=== PATIENT | male | born 1955 | race Two or more races ===

== ENCOUNTER 2016-11-08 11:13 | Inpatient (IN) | payer MEDICAID ==
[~2016-11-08] VITALS: Ht 182.9 cm; Wt 104.3 kg
--- NOTE | 2016-11-08 11:52 | NUR ---
PT IS A 61 YEAR OLD MALE, PRESENTS TO ED VIA [facility] FROM URGENT CARE WITH C/O SHORTNESS OF BREATH AND INTERMITTENT CHEST PAIN. PT REPORTS HAS BEEN HAVING INTERMITTENT MID CHEST PAIN WITH PRESSURE LIKE QUALITY AND NON RADIATING, AND SHORTNESS OF BREATH (UNABLE TO TAKE FULL DEEP BREATH). PT REPORTS WENT TO URGENT CARE FOR SAME ISSUE, AND WAS SENT HOME WITH PREDNISONE, AND ANTIBIOTICS. PT WENT BACK TO URGENT CARE TODAY AND URGENT CARE INFORMED HIM TO GO TO ER. PT DENIES ANY CHEST PAIN AT THIS TIME. PT BREATHING IS EVEN AND UNLABORED, NO S./S OF RESPRAITORY DISTRESS. SPEECH IS CLEAR AND APPROPRIATE. PT A/O X4. PT HOOKED TO FULL CREDIT CONTROL CLERK. LUNG SOUNDS ARE CLEAR BILATERALLY. SKIN IS WARM, DRY AND INTACT. MSE PERFORMED BY DR. SUNSHINE.
[2016-11-08 11:53] LABS: BASOPHIL % 0.3 % (0-2); PLATELET COUNT 198 x10^3mcL (130-400)
[2016-11-08 11:56] LABS: RED CELL DISTRIBUTION WIDTH 15.5 % (11.5-14.5)
[2016-11-08 12:08] LABS: CALCIUM 8.4 mg/dL (8.5-10.1); CARBON DIOXIDE 27.2 mmol/L (21-32); CHLORIDE SERUM 106 mmol/L (98-107); CREATININE SERUM 1.2 mg/dL (0.7-1.3); GFR1 > 60 mL/min; GLUCOSE SERUM 113 mg/dL (74-106); POTASSIUM SERUM 4.8 mmol/L (3.5-5.1); SODIUM SERUM 141 mmol/L (136-145)
[2016-11-08 12:13] LABS: ALBUMIN 3.5 g/dL (3.4-5.0); ALKALINE PHOSPHATASE 68 U/L (46-116); ALT/SGPT 93 U/L (16-63); AST/SGOT 38 U/L (15-37); BILIRUBIN TOTAL 1.39 mg/dL (0.20-1.00); TOTAL PROTEIN, SERUM 6.4 g/dL (6.4-8.2)
--- NOTE | 2016-11-08 13:08 | NUR ---
CARDIZEM DRIP RAISED 5MG/HR, DRIP NOW AT 10MG/HR. PT HR AT 103.
[2016-11-08] MEDS ORDERED: LISINOPRIL10 MG PO (13:21)
[2016-11-08] MEDS ORDERED: CEPHALEXIN500 MG PO (13:22)
[2016-11-08] MEDS ORDERED: HYDROXYZINE PAM50 MG PO (13:22)
--- NOTE | 2016-11-08 13:51 | NUR ---
CALLED REPORT TO GALDINO GABRIEL. HE WILL ASSUME CARE PRIMARY RN POST TRASNFER.
[2016-11-08 14:25] VITALS: BP 149/101
--- NOTE | 2016-11-08 14:30 | NUR ---
REC'D AOX4, SPEECH CLEAR. DAUGHTER AT THE BEDSIDE. DENIES PAIN, DIZZINES, WARNER. C/O MILD SOB DURING AMBULATION. OBTAINED URINE SPECIMEN, WILL SEND TO LAB. PT ALSO C/O MILD DISCOMFORT DURING URINATION AT TIMES. ON RA, NO SOB NOTED. ATTACHED TELE SHOWING AFIB. ORIENTED PT TO ROOM AND SURROUNDINGS. CALL LIGHT WITHIN REACH, WILL CONTINUE TO MONITOR
[2016-11-08 15:01] LABS: T3 TOTAL 0.87 ng/mL
--- NOTE | 2016-11-08 15:30 | NUR ---
PT RESTING IN BED COMFORTABLY. DENIES CHEST PAIN. WILL CONTINUE MONITOR.
[2016-11-08 15:50] LABS: UA SPECIFIC GRAVITY 1.025 (1.005-1.035); microscopic required? YES; urine erythrocyte NEGATIVE (NEGATIVE)
[2016-11-08 16:18] LABS: PHOSPHOROUS 3.9 mg/dL (2.5-4.9)
[2016-11-08 16:29] LABS: CHOLESTEROL/HDL RATIO 4.8; MAGNESIUM 2.1 mg/dL (1.8-2.4)
[2016-11-08 16:30] LABS: FREE T4 1.62 ng/dL (0.76-1.46); FREE THYROXINE INDEX 3.6 ug/dL (1.4-4.5); T4(THYROXINE) 9.9 ug/dL (4.7-13.3)
[2016-11-08 16:35] LABS: AMPHETAMINE QUAL UR NONE DETECTED (NEG <=1000)
--- NOTE | 2016-11-08 19:05 | NUR ---
FAMILY AT BEDSIDE.PT RESTING IN BED COMFORTABLY. DENIES ANY PAIN. GAVE REPORT TO NEXT SHIFT NURSE.
--- NOTE | 2016-11-08 19:39 | NUR ---
RECEIVED PATIENT IN BED AWAKE, ALERT AND ORIENTED FRISIAN SPEAKING WITH NO SIGN OF ACUTE DISTRESS NOTED. FAMILY MEMBERS AT BEDSIDE. ON O2 AT 2L VIA NC BREATHING EASY AND NONLABOR SATTING AT 96%. TELE# 16 AFIB ON MONITOR. DENIES CHEST DISCOMFORT. SCD TO BLE IN PLACE. IV TO RFA INTACT AND INFUSING WELL. WILL CONTINUE TO MONITOR. CALL LIGHT WITHIN REACH.
--- NOTE | 2016-11-08 21:07 | NUR ---
IV TO LW ACCIDENTALLY PULLED BY PATIENT REINSERTED TO LEFT HAND INTACT AND INFUSING WELL.
--- NOTE | 2016-11-08 21:56 | NUR ---
BLOOD PRESSURE 149/107, NITRO 0.4 SL GIVEN . WILL CONTINUE TO MONITOR.
[2016-11-08 22:09] VITALS: BP 157/124
--- NOTE | 2016-11-08 22:53 | NUR ---
BLOOD PRESSURE RECHECKED- 132/89, MAO 101, HR-73. WILL CONTINUE TO MONITOR.
[2016-11-08 22:54] VITALS: BP 132/89
[2016-11-09] VITALS (11 sets, daily range): BP systolic 119–159; BP diastolic 60–122
[2016-11-09 04:18] LABS: BASOPHIL % 0.3 % (0-2); PLATELET COUNT 173 x10^3mcL (130-400)
[2016-11-09 04:21] LABS: RED CELL DISTRIBUTION WIDTH 15.4 % (11.5-14.5)
--- NOTE | 2016-11-09 04:23 | NUR ---
PATIENT STILL AWAKE THIS TIME AND AGITATED ATIVAN 0.5MG IVP GIVEN PRESCRIBED. WILL CONTINUE TO MONITOR.
[2016-11-09 04:30] LABS: CARBON DIOXIDE 25.9 mmol/L (21-32); CHLORIDE SERUM 107 mmol/L (98-107); CREATININE SERUM 1.1 mg/dL (0.7-1.3); GFR1 > 60 mL/min; GLUCOSE SERUM 98 mg/dL (74-106); MAGNESIUM 1.9 mg/dL (1.8-2.4); PHOSPHOROUS 3.9 mg/dL (2.5-4.9); POTASSIUM SERUM 4.1 mmol/L (3.5-5.1); SODIUM SERUM 142 mmol/L (136-145)
--- NOTE | 2016-11-09 05:16 | NUR ---
SLEEPING THIS TIME AFTER ATIVAN GIVEN, BREATHING EASY AND NONLABOR. ALL NEEDS ATTENDED.
--- NOTE | 2016-11-09 06:26 | NUR ---
BP- 154/115ZESTRIL 25MG PO AND LOPRESSOR 12.5 MG PO GIVEN. WILL CONTINUE TO MONITOR.
--- NOTE | 2016-11-09 07:10 | NUR ---
RECEIVED Pt. AAOX4. RESPIRATIONS EVEN AND UNLABORED O2 2L/MIN NC. DENIES CHEST PAIN/PRESSURE. DENIES PAIN/DISCOMFORT AT THIS TIME. TELE [address] IVF NS RUNNING TO IV AT RIGHT HAND PATENT AND INTACT. PER NIGHT RN BP ELEVATED WILL CONTINUE TO MONITOR. BED LOW/LOCKED. CALL LIGHT IN REACH.
--- NOTE | 2016-11-09 07:52 | NUR ---
RECHECKED Pt. BP 145/114 MAP 124 PULSE 111. CARDIZEM 90 MG PO GIVEN.
--- NOTE | 2016-11-09 08:53 | NUR ---
RECHECKED Pt BP 148/116 MAP 126 HR 111, NITRO 0.4 SL GIVEN WILL CONTINUE TO MONITOR.
--- NOTE | 2016-11-09 09:20 | NUR ---
SPOKE WITH DR. REEVES NOTIFIED OF Pt. ELEVATED BP. RECHECKED BP AT 130/100 MAP 111 HR 67. DENIES CHEST PAIN/PRESSURE. DENIES PAIN/DSICOMFORT. RESPIRATIONS EVEN AND UNLABORED @ 02 4L/MIN NC.
--- NOTE | 2016-11-09 18:47 | NUR ---
Pt BP 144/112 HR 80 NITRO 0.4 MG SL GIVEN, Pt. DENIES PAIN/DISCOMFORT. DENIES CHEST PAIN/PRESSSURE. O2 3L/MIN NC. DR. REEVES NOTIFIED.
--- NOTE | 2016-11-09 19:16 | NUR ---
Pt. REMAINS AAOX4. RESPIRATIONS EVEN AND UNLABORED O2 3L/MIN NC. DENIES PAIN/DISCOMFORT. DENIES CHEST PAIN/PRESSURE. NO DISTRESS NOTED AT THIS TIME. TELE IN PLACE IVF RUNNING TO IV AT LEFT HAND PATENT AND INTACT. DAUGHTER AT BEDSIDE. BED LOW/LOCKED. CALL LIGHT IN REACH.
--- NOTE | 2016-11-09 19:30 | NUR ---
PATIENT RECEIVED AWAKE, ALERT, AND ORIENTED X 4. FAMILY AT BEDSIDE. NO DISTRESS NOTED. IV SITE TO LEFT HAND, PATENT AND INTACT. IV FLUID INFUSING PER DOCTOR'S ORDER. BED IN LOWEST POSITION. CALL LIGHT WITHIN REACH. WILL CONTINUE TO MONITOR.
--- NOTE | 2016-11-10 05:02 | NUR ---
PATIENT RESTED THROUGHOUT THE NIGHT. NO DISTRESS NOTED. NO C/O CHEST PAIN OR SOB. SAFETY AND COMFORT MEASURES MAINTAINED. BED IN LOWEST POSITION. CALL LIGHT WITHIN REACH. WILL CONTINUE TO MONITOR AND ENDORSE TO THE NEXT SHIFT NURSE.
[2016-11-10] MEDS ORDERED: TOP50 PO (05:49)
[2016-11-10] MEDS ORDERED: LASIX20 MG PO (05:50)
[2016-11-10] MEDS ORDERED: ZES20 PO (05:50)
[2016-11-10] MEDS ORDERED: ALD25 PO (05:50)
[2016-11-10 06:09] LABS: BASOPHIL % 0.3 % (0-2); PLATELET COUNT 156 x10^3mcL (130-400)
[2016-11-10 06:23] VITALS: BP 143/112
[2016-11-10 06:28] VITALS: BP 150/103
[2016-11-10 06:38] LABS: CARBON DIOXIDE 28.3 mmol/L (21-32); CHLORIDE SERUM 107 mmol/L (98-107); CREATININE SERUM 1.1 mg/dL (0.7-1.3); GFR1 > 60 mL/min; GLUCOSE SERUM 90 mg/dL (74-106); MAGNESIUM 1.9 mg/dL (1.8-2.4); PHOSPHOROUS 3.5 mg/dL (2.5-4.9); POTASSIUM SERUM 4.5 mmol/L (3.5-5.1); SODIUM SERUM 142 mmol/L (136-145)
[2016-11-10 06:39] LABS: RED CELL DISTRIBUTION WIDTH 15.6 % (11.5-14.5)
--- NOTE | 2016-11-10 08:00 | NUR ---
PT IS A/O X4 KINYARWANDA SPEAKING. TELE 16 A FIB. PULSES EQUAL BILATERAL NO EDEMA NOTED. LUNSG CTA PT RESTING ON RA, DOES STATED THAT HE GETS SOB WHILE WALKING TO RESTROOM. BRP WITH ASSIST, CALL LIGHT IN REACH. NO C/O PAIN AT THIS TIME. SKIN IS CDI. IV TO THE INFUSING AND PATENT. WILL CONTINUE TO MONITOR.
--- NOTE | 2016-11-10 09:00 | NUR ---
PT BP ELEVATED, DR VÁZQUEZ MADE AWARE.
[2016-11-10 10:11] VITALS: BP 141/106
--- NOTE | 2016-11-10 11:20 | NUR ---
PTS BP STILL ELEVATED DR ANTOINE MADE AWARE, WILL MEDICATE ACCORDING TO MAR.
[2016-11-10 11:26] VITALS: BP 141/106
--- NOTE | 2016-11-10 11:31 | NUR ---
BP STILL ELEVATED, DR ANTOINE MADE AWARE OKAY TO GIVE TOPOROL. WILL REASSESS PT.
[2016-11-10] MEDS ORDERED: ASPIR 8181 MG PO (12:44)
[2016-11-10] MEDS ORDERED: Diltiazem PO (12:44)
[2016-11-10 13:02] VITALS: BP 149/110
[2016-11-10] MEDS ORDERED: METOPROLOL SUC100 M2 PO (13:28)
[2016-11-10] MEDS ORDERED: COUMADIN5 MG PO (13:30)
[2016-11-10 14:10] VITALS: BP 135/91
--- NOTE | 2016-11-10 16:14 | NUR ---
PT RESTING COMFROTABLY IN BED NO SIGNS OF DISTRESS CALL LIGHT IN [facility], WILL CONTINUE TO MONITOR.
--- NOTE | 2016-11-10 17:39 | NUR ---
DISCHARGE INSTRUCTIONS GIVEN TO PT AND DAUGHTER, BOTH VERBALIZED UNDERSTANDING. INFORMED THEM OF NEED TO SCHEDULE FOLLOW UP APPT WITH CLINIC. SCRIPTS GIVEN TO PT. LAST DOSE AND TIME CHANGED FOR COUMADIN IN DISCHARGE PACKET. IV DC'D INTACT, BANDS REMOVED, TELE CLEANED AND RETURNED TO MONITOR ROOM, ALL QUESTIONS ANSWERED. DR ANTOINE IN TO FOLLOW UP WITH MT AND DAUGHTER, ALL BEINGINGS WITH PT, PT ACCOMPANIRED OFF THE FLOOR BY RN.
== END 2016-11-10 17:40 | disposition home or self-care (01) | DRG 194 ==
LOC: ED 11:13 → DU 13:05
PROVIDERS: Emergency Medicine; Family Medicine; ADMIT Family Medicine
DX: I11.0 Hypertensive heart disease with heart failure (principal); N17.0 Acute kidney failure with tubular necrosis; I48.91 Unspecified atrial fibrillation; I50.43 Acute on chronic combined systolic (congestive) and diastolic (congestive) heart failure; I42.0 Dilated cardiomyopathy; K76.0 Fatty (change of) liver, not elsewhere classified; E78.5 Hyperlipidemia, unspecified; I34.0 Nonrheumatic mitral (valve) insufficiency; I36.1 Nonrheumatic tricuspid (valve) insufficiency; Z68.31 Body mass index [BMI] 31.0-31.9, adult
CPT/HCPCS: 80307; 82962; 83880; 84439; 93225; J2060; J3490; J7030; J7040; Q0092; Q0177